=== PATIENT | male | born 1940 | race Caucasian/White ===

== ENCOUNTER 2023-03-09 19:30 | Outpatient (OUT) | payer MEDICARE, OTHER, SELFPAY ==
[2023-03-25 13:09] LABS: Calcium Oxalate Dihydrate 50 % (.); Calcium Oxalate Monohydrate 50 % (.); Size 3x3 mm (.)
== END 2023-03-09 19:31 | disposition home or self-care (01) ==
LOC: LAB 03-18 14:28
PROVIDERS: PCP Urology; Visit Provider Urology
DX: N20.0 Calculus of kidney (principal)
CPT/HCPCS: 82365